=== PATIENT | female | born 1975 | race African-American/Black ===

== ENCOUNTER 2017-07-20 21:13 | Emergency (ER) | payer OTHER ==
[~2017-07-20] VITALS: Ht 177.8 cm; Wt 95.7 kg
[~2017-07-20 21:13] MED LIST: AMBIEN 10 MG TA10 MG PO; AMOXICILLIN 50500 MG PO; ATENOLOL-CHLOR1 EACH PO; AUGMENTIN 875875 MG PO; BIRTH CONTROL; CELEXA 20 MG TA20 MG PO; CIPROFLOXACIN500 M1 PO; FLAGYL500 MG PO; HYDROCODONE-AP1 EAC6 PO; IBUPROFEN 600600 M1 PO; IBUPROFEN 800800 M1 PO; JUNEL FE 1.5-31 EACH PO; K-DUR10 ME1; ONDANSETRON HCL4 M3 PO; PENICILLIN VK500 MG PO; PERCOCET 5-3251 EACH PO; POTASSIUM20 PO; PREDNISONE50 MG PO; PROTONIX 20 MG20 M1; TAMIFLU PO; TRAMADOL 50 MG50 MG PO; VICODIN 5-5001 EACH PO; XANAX 0.5 MG0.5 MG PO; ZOFRAN ODT4 MG SUBLING; [UNRECOGNIZED DRUG - REMARK]
[2017-07-20] MEDS ORDERED: IBUPROFEN 800800 MG PO (21:58)
[2017-07-20] MEDS ORDERED: FLEXERIL PO (21:58)
[2017-07-20 22:05] VITALS: BP 126/59
== END 2017-07-20 22:06 | disposition home or self-care (01) ==
LOC: M.ERS 21:13
DX: M54.5 Low back pain (principal); I10 Essential (primary) hypertension; F32.9 Major depressive disorder, single episode, unspecified; Z98.890 Other specified postprocedural states